=== PATIENT | female | born 1980 | race Two or more races ===

== ENCOUNTER 2021-02-12 14:16 | Outpatient (CLI) | payer OTHER | END 2021-02-12 14:35 | disposition home or self-care (01) | LOC: NST 14:16 | PROVIDERS: ATTEND Obstetrics & Gynecology | DX: Z34.83 Encounter for supervision of other normal pregnancy, third trimester (principal) ==

== ENCOUNTER 2021-03-06 07:30 | Inpatient (IN) | payer OTHER ==
[~2021-03-06] VITALS: Ht 170.2 cm; Wt 122.9 kg
[2021-03-06] MEDS ORDERED: SYNTHROID137 MCG PO (10:30)
[2021-03-06] MEDS ORDERED: PRENATA PO (10:30)
[2021-03-06] MEDS ORDERED: IRON IV (10:31)
[2021-03-06] MEDS ORDERED: IRON PO (10:31)
[2021-03-11] MEDS ORDERED: SYNTHROID137 MCG PO (10:15)
[2021-03-11] MEDS ORDERED: IRON236 MG PO (11:13)
[2021-03-11] MEDS ORDERED: PRENATAL + DHA1 EAC1 PO (11:13)
== END 2021-03-13 17:48 | disposition home or self-care (01) | DRG 788 ==
LOC: OB/GYN 03-11 07:30 → O/R 03-11 10:43 → OB/GYN 03-11 17:24
PROVIDERS: ADMIT Obstetrics & Gynecology; ATTEND Obstetrics & Gynecology
PROC: 4A1HXFZ Monitoring of Products of Conception, Cardiac Rhythm, External Approach (ICD-10-PCS; 2021-03-11)
PROC: 10D00Z1 Extraction of Products of Conception, Low, Open Approach (ICD-10-PCS; principal; 2021-03-11 09:00)
DX: O64.1XX0 Obstructed labor due to breech presentation, not applicable or unspecified (principal); Z3A.39 39 weeks gestation of pregnancy; Z37.0 Single live birth

== ENCOUNTER 2024-10-29 09:15 | Inpatient (IN) | payer OTHER ==
[~2024-10-29] VITALS: Ht 170.2 cm; Wt 127.0 kg
[~2024-10-29 09:15] MED LIST: IRON IV; IRON PO; IRON236 MG PO; PRENATA PO; PRENATAL + DHA1 EAC1 PO; SYNTHROID137 MCG PO
[2024-10-29 12:11] LABS: HEMATOCRIT 34.4 % (36.0-45.00); MEAN CELL VOLUME 75.3 fL (80.00-100.00); MEAN CORPUSCULAR HGB CONC 31.9 g/dl (32.0-36.0); PLATELET COUNT 366 K/uL (150-450); RED BLOOD COUNT 4.57 M/uL (4.00-6.00)
[2024-10-29 12:14] LABS: RED CELL DISTRIBUTION WIDTH 20.5 % (11.5-14.5)
[2024-10-29 12:30] LABS: INR 0.94; PARTIAL THROMBOPLASTIN TIME 26.9 SECONDS (22.0-34.0); PROTHROMBIN TIME 10.3 SECONDS (9.0-11.5)
[2024-10-29 13:04] LABS: ALBUMIN 2.8 gm/dL (3.4-5.0); BILIRUBIN TOTAL 0.46 mg/dL (0.3-1.2); CALCIUM 8.7 mg/dL (8.5-10.1); CREATININE SERUM 0.45 mg/dL (0.55-1.02); GLOBULINA 3.9 G/DL (2.4-3.5); POTASSIUM 4.17 mEq/L (3.5-5.1); TOTAL PROTEIN 6.7 gm/dL (6.4-8.2)
[2024-11-03 13:35] VITALS: BP 133/84
[2024-11-03] MEDS ORDERED: RINGERS SOLUTION,LACTATED 1,000 ML IV SCH (14:00)
[2024-11-03 14:03] LABS: HEMATOCRIT 34.7 % (36.0-45.00); HEMOGLOBIN 11.3 g/dL (12.0-15.00); MEAN CELL VOLUME 73.5 fL (80.00-100.00); MEAN CORPUSCULAR HGB CONC 32.7 g/dl (32.0-36.0); PLATELET COUNT 277 K/uL (150-450); RED BLOOD COUNT 4.71 M/uL (4.00-6.00); RED CELL DISTRIBUTION WIDTH 20.4 % (11.5-14.5)
[2024-11-03 14:32] LABS: INR < 0.93; PARTIAL THROMBOPLASTIN TIME 25.8 SECONDS (22.0-34.0)
[2024-11-03 14:37] LABS: ALBUMIN 2.8 gm/dL (3.4-5.0); BILIRUBIN TOTAL 0.38 mg/dL (0.3-1.2); CREATININE SERUM 0.53 mg/dL (0.55-1.02); GFR 124.19; GLOBULINA 3.9 G/DL (2.4-3.5); POTASSIUM 4.75 mEq/L (3.5-5.1); TOTAL PROTEIN 6.7 gm/dL (6.4-8.2)
[2024-11-03] MEDS ORDERED: CEFAZOLIN SODIUM 1,000 MG VIAL IV STA (14:43)
[2024-11-03] MEDS ORDERED: OXYTOCIN 1,000 ML IV SCH (16:00)
[2024-11-03] MEDS ORDERED: MORPHINE SULFATE 4 MG/ML CARTRIDGE IV PRN (16:00)
[2024-11-03] MEDS ORDERED: MORPHINE SULFATE 4 MG/ML VIAL IV ONE ×3 (17:00→18:00)
[2024-11-03] MEDS ORDERED: ONDANSETRON HCL 2 MG/ML VIAL IV ONE (17:20)
[2024-11-03] MEDS ORDERED: MEPERIDINE HCL 25 MG/ML AMPUL IV ONE (18:30)
[2024-11-03 19:17] VITALS: BP 97/55
[2024-11-03] MEDS ORDERED: MORPHINE SULFATE 4 MG/ML VIAL IV PRN (21:45)
[2024-11-04 00:01] VITALS: BP 120/73
[2024-11-04 05:00] VITALS: BP 120/70
[2024-11-04 08:18] VITALS: BP 83/60
[2024-11-04] MEDS ORDERED: IBUprofen 400 MG TABLET PO SCH (09:00)
[2024-11-04 09:44] VITALS: BP 100/70
[2024-11-04] MEDS ORDERED: MORPHINE SULFATE 4 MG/ML CARTRIDGE IV PRN (10:45)
[2024-11-04 12:50] LABS: HEMOGLOBIN 9.7 g/dL (12.0-15.00); MEAN CELL VOLUME 75.1 fL (80.00-100.00); MEAN CORPUSCULAR HEMOGLOBIN 23.5 pg (27.00-32.0); MEAN CORPUSCULAR HGB CONC 31.4 g/dl (32.0-36.0); PLATELET COUNT 249 K/uL (150-450); RED BLOOD COUNT 4.13 M/uL (4.00-6.00); RED CELL DISTRIBUTION WIDTH 20.5 % (11.5-14.5)
[2024-11-04 17:02] VITALS: BP 107/73
[2024-11-04 21:00] VITALS: BP 117/76
[2024-11-05 00:44] VITALS: BP 117/79
[2024-11-05] MEDS ORDERED: OxyCODONE HCL 5 MG TABLET (ROXICODONE) PO PRN (06:00)
[2024-11-05 07:37] VITALS: BP 102/64
[2024-11-05 15:47] VITALS: BP 141/75
[2024-11-06 00:39] VITALS: BP 94/65
[2024-11-06 07:50] VITALS: BP 110/75
[2024-11-06] MEDS ORDERED: ERYTHROMYCIN BASE OPHT 1GM EACH TUBE OP ONE (22:45)
[2024-11-06] MEDS ORDERED: OXYTOCIN 20 UNITS/1000ML RL PIGGYBAG IV ONE (22:45)
== END 2024-11-06 11:04 | disposition home or self-care (01) | DRG 785 ==
LOC: LDR 11-03 13:39 → OB/GYN 11-03 15:58
PROVIDERS: ADMIT Obstetrics & Gynecology; ATTEND Obstetrics & Gynecology
PROC: 0UB70ZZ Excision of Bilateral Fallopian Tubes, Open Approach (ICD-10-PCS; 2024-11-03)
PROC: 4A1HXCZ Monitoring of Products of Conception, Cardiac Rate, External Approach (ICD-10-PCS; 2024-11-03)
PROC: 10D00Z1 Extraction of Products of Conception, Low, Open Approach (ICD-10-PCS; principal; 2024-11-03 15:00)
DX: O32.1XX0 Maternal care for breech presentation, not applicable or unspecified (principal); O34.211 Maternal care for low transverse scar from previous cesarean delivery; Z3A.38 38 weeks gestation of pregnancy; Z37.0 Single live birth; Z20.822 Contact with and (suspected) exposure to COVID-19; Z30.2 Encounter for sterilization

== ENCOUNTER 2024-10-30 14:51 | Outpatient (CLI) | payer OTHER | END 2024-10-30 16:00 | disposition home or self-care (01) | LOC: NST 14:51 | PROVIDERS: ATTEND Obstetrics & Gynecology Gynecology | DX: Z34.83 Encounter for supervision of other normal pregnancy, third trimester (principal) ==